=== PATIENT | male | born 1945 | race Caucasian/White ===

== ENCOUNTER 2020-08-20 10:46 | Emergency (ER) | payer MEDICARE, BC ==
--- NOTE | 2020-08-20 11:52 | EDM.PDOC ---
ED HPI GENERAL MEDICAL PROBLEM - General Chief Complaint: Respiratory Problem Stated Complaint: COVID SYMPTOMS Time Seen by Provider: 08/20/20 11:00 Source of Information: Reports: Patient, Family History Limitations: Reports: No Limitations - History of Present Illness INITIAL COMMENTS - FREE TEXT/NARRATIVE: Patient has the covid symptoms 10 days soni-fever,chills, body malaise, nausea and diarrhea. 1 week ago he was positive for COVID 19. Today he c/o weakness, diarrhea, and dyspneapnea although his oxygen saturation is 98-100 % on RA. - Related Data Allergies Allergy/AdvReac Type Severity Reaction Status Date / Time No Known Allergies Allergy Verified 06/21/16 14:42 Home Meds: Home Meds Acetaminophen [Tylenol Extra Strength] 1,000 mg PO Q8H 06/21/16 [History] Aspirin [Adult Low Dose Aspirin EC] 81 mg PO DAILY 06/21/16 [History] Clopidogrel [Plavix] 75 mg PO DAILY 06/21/16 [History] Morphine 15 mg PO DAILY 06/21/16 [History] Simvastatin [Zocor] 20 mg PO DAILY 06/21/16 [History] hydrOXYzine pamoate [Vistaril] 50 mg PO ASDIRECTED 06/21/16 [History] oxyCODONE 10 mg PO Q4H PRN 06/21/16 [History] Past Medical History - Infectious Disease History Infectious Disease History: Reports: Chicken Pox, Measles - Past Surgical History HEENT Surgical History: Reports: Other (See Below) Neurological Surgical History: Reports: Other (See Below) Musculoskeletal Surgical History: Reports: Knee Replacement Social & Family History - Family History Family Medical History: No Pertinent Family History - Tobacco Use Tobacco Use Status *Q: Never Tobacco User - Caffeine Use Caffeine Use: Reports: None ED ROS GENERAL - Review of Systems Review Of Systems: See Below Constitutional: Reports: Malaise, Weakness HEENT: Reports: No Symptoms Respiratory: Reports: Cough Cardiovascular: Reports: No Symptoms Endocrine: Reports: No Symptoms GI/Abdominal: Reports: Diarrhea, Nausea Musculoskeletal: Reports: No Symptoms Skin: Reports: No Symptoms Neurological: Reports: No Symptoms Psychiatric: Reports: No Symptoms Hematologic/Lymphatic: Reports: No Symptoms ED EXAM, GENERAL - Physical Exam Exam: See Below Exam Limited By: No Limitations General Appearance: Alert, No Apparent Distress Eye Exam: Bilateral Eye: PERRL Ears: Normal External Exam, Normal Canal Nose: Normal Inspection, Normal Mucosa Throat/Mouth: Normal Inspection, Normal Lips, Normal Teeth Head: Atraumatic, Normocephalic Neck: Normal Inspection, Supple, Non-Tender, Full Range of Motion Respiratory/Chest: No Respiratory Distress, Lungs Clear, Normal Breath Sounds Cardiovascular: Normal Peripheral Pulses, Regular Rate, Rhythm, No Edema, No Gallop, No JVD, No Murmur GI/Abdominal: Normal Bowel Sounds, Soft, Non-Tender, No Organomegaly Back Exam: Normal Inspection, Full Range of Motion Extremities: Normal Inspection, Normal Range of Motion, Non-Tender Neurological: Alert, Oriented, CN II-XII Intact, Normal Cognition Course - Vital Signs Text/Narrative:: Labs/CXR was reviewed with patient Refused IVF Reassurance Last Recorded V/S: Last Vital Signs Temp 36.3 C 08/20/20 10:46 Pulse 74 08/20/20 10:46 Resp 18 08/20/20 10:46 BP 113/64 08/20/20 10:46 Pulse Ox 100 08/20/20 10:46 - Orders/Labs/Meds Orders: Active Orders 24 hr Category Date Time Status Chest 1V Frontal [CR] Stat Exams 08/20/20 11:08 Taken Labs: Laboratory Tests 08/20/20 08/20/20 Range/Units 11:16 11:16 WBC 5.6 (3.2-10.1) x10-3/uL RBC 4.85 (3.90-5.90) x10(6)uL Hgb 14.3 (12.9-17.7) g/dL Hct 43.5 (38.3-50.1) % MCV 89.7 (80.8-98.7) fL MCH 29.6 (27.0-33.3) pg MCHC 33.0 (28.7-35.3) g/dL RDW 13.1 (12.4-15.0) % Plt Count 123 (117-477) x10(3)uL MPV 8.3 (6.7-11.0) fL Neut % (Auto) 72.7 H (40.3-71.8) % Lymph % (Auto) 16.8 (15.8-45.3) % Bonner % (Auto) 10.0 (5.5-15.2) % Eos % (Auto) 0.1 (0.1-6.8) % Baso % (Auto) 0.4 (0.3-3.8) % Neut # (Auto) 4.1 (1.7-6.9) x10-3/uL Lymph # (Auto) 0.9 (0.5-4.5) x10-3/uL Bonner # (Auto) 0.6 (0.0-1.2) x10-3/uL Eos # (Auto) 0.0 (0.0-0.6) x10-3/uL Baso # (Auto) 0.0 (0.0-0.3) x10-3/uL Sodium 140 (135-145) mmol/L Potassium 3.9 (3.5-5.3) mmol/L Chloride 103 (100-110) mmol/L Carbon Dioxide 29 (21-32) mmol/L BUN 14 (7-18) mg/dL Creatinine 1.2 (0.70-1.30) mg/dL Est Cr Clr Drug Dosing 41.74 mL/min Estimated GFR (MDRD) 60 (>60) BUN/Creatinine Ratio 11.7 (9-20) Glucose 104 (80-116) mg/dL Calcium 8.3 L (8.6-10.2) mg/dL Departure - Departure Time of Disposition: 11:50 Disposition: Home, Self-Care 01 Condition: Good Clinical Impression: COVID-19 - Discharge Information Instructions: COVID-19 Frequently Asked Questions Referrals: Gerardo Kim MD [Primary Care Provider] - Forms: ED Department Discharge Additional Instructions: please read discharge instructions on COVID 9 infection Wear mask at all times Wash your hands Increase oral fluids at least 2-3 liters water a day Imodium 2 tablets every 6 hours as needed for diarrhea TTake 1 tablet each of Vit C, D, and Zinc Follow up as needed Sepsis Event Note (ED) - Evaluation Sepsis Screening Result: No Definite Risk - Focused Exam Vital Signs: Vital Signs Temp Pulse Resp BP Pulse Ox 08/20/20 10:46 36.3 C 74 18 113/64 100 - My Orders Last 24 Hours: My Active Orders 08/20/20 11:08 Chest 1V Frontal [CR] Stat - Assessment/Plan Last 24 Hours: My Active Orders 08/20/20 11:08 Chest 1V Frontal [CR] Stat
[2020-08-20 13:09] VITALS: BP 108/58; PULSE 66
--- NOTE | 2020-08-21 09:56 | CR ---
INDICATION: Coughing. CHEST ONE VIEW: Portable AP upright view of the chest was obtained 08/20/20 and compared with 10/01/15 [facility] images. The heart did not appear grossly enlarged. The aorta is tortuous with calcification in the arch. Linear density is noted at the lower midlung field on the right that may represent thickening of the minor fissure. Linear density near the right costophrenic angle may represent subsegmental atelectasis and/or fibrosis. A definite active infiltrate or effusion was not identified with markings otherwise similar to the previous chest x-ray of 2015. It is difficult to exclude minimal patchy bronchopneumonia peripherally in the mid to lower lung yuen, however, with poor inspiration and portable technique. MTDD
== END 2020-08-20 12:20 | disposition home or self-care (01) ==
LOC: FB.ED 10:46
DX: U07.1 COVID-19 (principal)
CPT/HCPCS: 36415; 71045; 80048; 85025; 99284-25